=== PATIENT | male | born 1980 | race Caucasian/White ===

== ENCOUNTER 2021-02-11 10:24 | Emergency (ER) | payer SELFPAY ==
[2021-02-11 11:16] LABS: BILIRUBIN,URINE NEGATIVE (NEGATIVE); CLARITY,URINE CLEAR (CLEAR); GLUCOSE, URINE (UA) NEGATIVE (NEGATIVE); KETONES,URINE (UA) NEGATIVE (NEGATIVE); LEUKOCYTE ESTERASE, URINE NEGATIVE (NEGATIVE); NITRITE,URINE NEGATIVE (NEGATIVE); OCCULT BLOOD,URINE NEGATIVE (NEGATIVE); PROTEIN,URINE TRACE mg/dL (NEGATIVE); UROBILINOGEN,URINE 0.2 (NORMAL) E.U./dL (NORMAL)
[2021-02-11 11:27] LABS: BACTERIA,URINE Few /HPF (None Seen); RBC,URINE 0-5 /HPF (0-5); SQUAMOUS EPITHELIAL CELL,UR RARE Squamous (<= Few)
[2021-02-11 11:34] LABS: BASOPHILS % (AUTO) 0.1 %; EOSINOPHILS % (AUTO) 0.1 %; HCT - HEMATOCRIT 41.8 % (42.0-52.0); HGB - HEMOGLOBIN 14.6 g/dL (14.0-18.0); MEAN CORPUSCULAR HEMOGLOBIN 31.2 pg (27.0-31.0); MEAN CORPUSCULAR HGB CONC 34.9 g/dL (32.0-36.0); MEAN CORPUSCULAR VOLUME 89.3 fL (80.0-94.0); MEAN PLATELET VOLUME 9.9 fL (7.4-11.4); MONOCYTES # (AUTO) 0.7 10^3/uL (0.0-1.0); MONOCYTES % (AUTO) 9.4 %; NEUTROPHILS # (AUTO) 5.4 10^3/uL (1.5-6.6); PLT - PLATELET COUNT 212 10^3/uL (130-450); RED BLOOD COUNT 4.68 10^6/uL (4.70-6.10); RED CELL DISTRIBUTION WIDTH 11.9 % (12.0-15.0); WHITE BLOOD COUNT 7.1 x10^3/uL (4.8-10.8)
[2021-02-11 11:54] LABS: ALBUMIN 3.7 g/dL (3.2-5.5); ALBUMIN/GLOBULIN RATIO 1.1 (1.0-2.2); BILIRUBIN,TOTAL 1.9 mg/dL (0.2-1.0); CREATININE 1.8 mg/dL (0.6-1.2); POTASSIUM 2.7 mmol/L (3.5-5.0)
[2021-02-11] MEDS ORDERED: SODIUM CHLORIDE 0.9% 1,000 ML IV STA ×3 (11:54→14:31)
--- NOTE | 2021-02-11 11:56 | ED Physician Documentation ---
PD HPI NVD - Stated complaint Stated Complaint: NAUSEA/HEAD PX/DIZZY - Chief complaint Chief Complaint: Abd Pain - History obtained from History obtained from: Patient - History of Present Illness Timing - onset: How many days ago (4) Timing - duration: Days (4) Timing - details: Gradual onset, Still present Associated symptoms: Dizzy, Near syncope / syncope, Other (headache) Contributing factors: Other (recent heat wave and continued outdoor activity after symptoms developed.) Improved by: Vomiting Similar symptoms before: Has not had sx before Recently seen: Not recently seen - Additonal information Additional information: Previously well 40-year-old male has developed nausea a headache some vomiting and lightheaded and dizziness over the past 4 days. He states that during the heat wave he does think he got dehydrated and he does not think he has caught up. He has developed a lot of heartburn which is typical for him and he has taken a lot of Tums over the past several days. Review of Systems Constitutional: denies: Fever Ears: denies: Ear pain Nose: denies: Congestion Throat: denies: Sore throat Cardiac: reports: Chest pain / pressure (heart burn) Respiratory: denies: Dyspnea, Cough GI: reports: Nausea, Vomiting. denies: Abdominal Pain : denies: Dysuria, Frequency PD PAST MEDICAL HISTORY - Present Medications Home Medications: Ambulatory Orders Medication Instructions Recorded Confirmed No Known Home Medications 02/11/21 02/11/21 - Allergies Allergies/Adverse Reactions: Allergies Allergy/AdvReac Type Severity Reaction Status Date / Time No Known Drug Allergies Allergy Verified 02/11/21 10:31 - Social History Does the pt smoke?: No Smoking Status: Never smoker Does the pt drink ETOH?: Yes Does the pt have substance abuse?: Yes Substance Use and Type: Marijuana PD ED PE NORMAL - Vitals Vital signs reviewed: Yes (hypertensive ) - General General: Alert and oriented X 3, No acute distress, Well developed/nourished - HEENT HEENT: Atraumatic, PERRL, EOMI - Neck Neck: Supple, no meningeal sign, No bony TTP - Cardiac Cardiac: RRR, No murmur - Respiratory Respiratory: No respiratory distress, Clear bilaterally - Abdomen Abdomen: Normal bowel sounds, Soft, Non tender, Non distended, No organomegaly - Back Back: No CVA TTP, No spinal TTP - Derm Derm: Normal color, Warm and dry, No rash - Extremities Extremities: No deformity, No edema - Neuro Neuro: Alert and oriented X 3, 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, No motor deficit, No sensory deficit, Normal speech Eye Opening: Spontaneous Motor: Obeys Commands Verbal: Oriented GCS Score: 15 - Psych Psych: Normal mood, Normal affect Results - Vitals Vitals: Vital Signs - 24 hr 02/11/21 02/11/21 02/11/21 10:27 12:31 14:00 Temperature 36.6 C 36.8 C 36.6 C Heart Rate 92 71 76 Respiratory 16 14 14 Rate Blood Pressure 160/100 H 164/94 H 166/102 H O2 Saturation 97 98 99 Oxygen O2 Source Room air - Labs Labs: Laboratory Tests 02/11/21 02/11/21 02/11/21 10:43 10:43 11:19 WBC 7.1 RBC 4.68 L Hgb 14.6 Hct 41.8 L MCV 89.3 MCH 31.2 H MCHC 34.9 RDW 11.9 L Plt Count 212 MPV 9.9 Neut # (Auto) 5.4 Lymph # (Auto) 1.0 L [place] # (Auto) 0.7 Eos # (Auto) 0.0 Baso # (Auto) 0.0 Absolute Nucleated RBC 0.00 Nucleated RBC % 0.0 Sodium Potassium Chloride Carbon Dioxide Anion Gap BUN Creatinine Estimated GFR (MDRD) Glucose Calcium Total Bilirubin AST ALT Alkaline Phosphatase Total Protein Albumin Globulin Albumin/Globulin Ratio Lipase PTH Intact Urine Color YELLOW Cancelled Urine Clarity CLEAR Cancelled Urine pH 8.0 H Cancelled Ur Specific [place] 1.015 Cancelled Urine Protein TRACE Cancelled Urine Glucose (UA) NEGATIVE Cancelled Urine Ketones NEGATIVE Cancelled Urine Occult Blood NEGATIVE Cancelled Urine Nitrite NEGATIVE Cancelled Urine Bilirubin NEGATIVE Cancelled Urine Urobilinogen 0.2 (NORMAL) Cancelled Ur Leukocyte Esterase NEGATIVE Cancelled Urine RBC 0-5 Urine WBC 4-5 Ur Squamous Epith Cells RARE Squamous Urine Bacteria Few Ur Microscopic Review Cancelled Urine Culture Comments Cancelled 02/11/21 02/11/21 11:19 11:19 WBC RBC Hgb Hct MCV MCH MCHC RDW Plt Count MPV Neut # (Auto) Lymph # (Auto) [place] # (Auto) Eos # (Auto) Baso # (Auto) Absolute Nucleated RBC Nucleated RBC % Sodium 127 L Potassium 2.7 L Chloride 82 L Carbon Dioxide 33 H Anion Gap 12.0 BUN 21 H Creatinine 1.8 H Estimated GFR (MDRD) 42 L Glucose 110 H Calcium 15.1 H* Total Bilirubin 1.9 H AST 45 H ALT 41 Alkaline Phosphatase 54 Total Protein 7.0 Albumin 3.7 Globulin 3.3 Albumin/Globulin Ratio 1.1 Lipase 24 PTH Intact 8 L Urine Color Urine Clarity Urine pH Ur Specific [place] Urine Protein Urine Glucose (UA) Urine Ketones Urine Occult Blood Urine Nitrite Urine Bilirubin Urine Urobilinogen Ur Leukocyte Esterase Urine RBC Urine WBC Ur Squamous Epith Cells Urine Bacteria Ur Microscopic Review Urine Culture Comments Procedures - IVC sono (time) 1150 Bedside IVC sono: IVC measures (cm) (0.73), IVC collapsed c insp (cm) (complete), Dehydration (est 2-3 liter deficit) PD MEDICAL DECISION MAKING - ED course Complexity details: reviewed results, re-evaluated patient, considered differential, d/w patient ED course: 40-year-old male has developed nausea and vomiting has become dehydrated and he has been taking a lot of Tums. He is found to have an elevated calcium and has a normal or low parathyroid hormone. 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 He improved with use of intravenous saline and we have administered potassium as well. Departure - Departure Disposition: 01 Home, Self Care Clinical Impression: Dehydration, Milk alkali syndrome, Hypokalemia Gastroesophageal reflux disease Qualifiers: Esophagitis presence: esophagitis presence not specified Qualified Code(s): K21.9 - Gastro-esophageal reflux disease without esophagitis Vomiting Qualifiers: Vomiting type: unspecified Vomiting Intractability: non-intractable Nausea presence: with nausea Qualified Code(s): R11.2 - Nausea with vomiting, unspe cified Condition: Stable Instructions: ED Dehydration, ED Diet High Potassium, ED Diet Vomiting Diarrhea Follow-Up: [facility] [Provider Group] Comments: Discontinue the use of the Tums and substitute omeprazole.
[2021-02-11 11:57] LABS: CALCIUM 15.1 mg/dL (8.5-10.3)
[2021-02-11] MEDS ORDERED: POTASSIUM CHLORIDE 20 MEQ TABLET PO STA (12:30)
[2021-02-11] MEDS: POTASSIUM CHLOR 10 MEQ/100 ML 10 MEQ/100 ML BAG IV SCH ×4 (12:40→15:49)
[2021-02-11 16:48] VITALS: BP 171/102
== END 2021-02-11 17:02 | disposition home or self-care (01) ==
LOC: ED 10:24
DX: E86.0 Dehydration (principal); E83.52 Hypercalcemia; E87.6 Hypokalemia; K21.9 Gastro-esophageal reflux disease without esophagitis
CPT/HCPCS: 36415; 80053; 81001; 83690; 83970; 85025; 96365; 96366; 96367; 99284; A9270; 81003; 87086

== ENCOUNTER 2021-07-24 18:31 | Emergency (ER) | payer MEDICAID ==
[2021-07-24 19:04] LABS: BILIRUBIN,URINE NEGATIVE (NEGATIVE); GLUCOSE, URINE (UA) NEGATIVE (NEGATIVE); KETONES,URINE (UA) NEGATIVE (NEGATIVE); LEUKOCYTE ESTERASE, URINE NEGATIVE (NEGATIVE); NITRITE,URINE NEGATIVE (NEGATIVE); OCCULT BLOOD,URINE TRACE-INTA (NEGATIVE); PH,URINE 6.5 PH (5.0-7.5); PROTEIN,URINE NEGATIVE (NEGATIVE); UROBILINOGEN,URINE 0.2 (NORMAL) E.U./dL (NORMAL)
[2021-07-24 19:07] LABS: CLARITY,URINE CLEAR (CLEAR)
[2021-07-24] MEDS ORDERED: MAG HYDROX/AL HYDROX/SIMETH 30 ML UDC PO STA (19:24)
[2021-07-24] MEDS ORDERED: ACETAMINOPHEN 325 MG TABLET PO STA (19:24)
[2021-07-24] MEDS ORDERED: LIDOCAINE VISCOUS 2% 15 ML UDC MM STA (19:24)
--- NOTE | 2021-07-24 19:25 | ED Physician Documentation ---
PD HPI ABD PAIN - Stated complaint Stated Complaint: ABDOMINAL PX - Chief complaint Chief Complaint: Abd Pain - History obtained from History obtained from: Patient - Additional information Additional information: 41-year-old gentleman has been having issues with abdominal pain. He was originally seen by it for it by one of my partners in February right after the heat wave. 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 He was taking a lot of Tums at the time and has stopped that. Now for the last week he has had upper abdominal pain radiating to the flanks and subsequently down to the pelvis. It is not worse after eating. He has been nauseous with it. Review of Systems Ten Systems: 10 systems reviewed and negative Constitutional: denies: Fever, Chills, Weight Loss Ears: reports: Reviewed and negative Nose: reports: Reviewed and negative Throat: reports: Reviewed and negative Cardiac: reports: Reviewed and negative PD PAST MEDICAL HISTORY - Present Medications Home Medications: Ambulatory Orders Medication Instructions Recorded Confirmed Oxycodone HCl/Acetaminophen 1 - 2 each PO Q6H PRN #14 tablet 07/24/21 [Percocet 5-325 mg Tablet] - Allergies Allergies/Adverse Reactions: Allergies Allergy/AdvReac Type Severity Reaction Status Date / Time No Known Drug Allergies Allergy Verified 07/24/21 18:42 - Social History Does the pt smoke?: No Smoking Status: Never smoker Does the pt drink ETOH?: Yes Does the pt have substance abuse?: Yes PD ED PE NORMAL - Vitals Vital signs reviewed: Yes - General General: Alert and oriented X 3, No acute distress - HEENT HEENT: PERRL, EOMI - Neck Neck: Supple, no meningeal sign, No bony TTP - Cardiac Cardiac: RRR, No murmur - Respiratory Respiratory: No respiratory distress, Clear bilaterally - Abdomen Abdomen: Normal bowel sounds, Soft, Other (Mild epigastric tenderness with equivocal Willams sign and right upper quadrant tenderness. No surgical signs.) - Back Back: No CVA TTP, No spinal TTP - Derm Derm: Normal color, Warm and dry - Extremities Extremities: No edema, No calf tenderness / cord - Neuro Neuro: Alert and oriented X 3, Normal speech Results - Vitals Vitals: Vital Signs - 24 hr 07/24/21 07/24/21 07/24/21 18:40 19:47 21:00 Temperature 36.5 C 36.8 C Heart Rate 108 H 97 100 Respiratory 18 22 18 Rate Blood Pressure 204/133 H 174/102 H 174/98 H O2 Saturation 98 99 100 Oxygen O2 Source Room air - Labs Labs: Laboratory Tests 07/24/21 07/24/21 07/24/21 18:51 18:51 18:53 WBC 14.0 H RBC 4.85 Hgb 15.8 Hct 43.9 MCV 90.5 MCH 32.6 H MCHC 36.0 RDW 12.6 Plt Count 161 MPV 9.2 Neut # (Auto) 11.6 H Lymph # (Auto) 1.0 L [place] # (Auto) 1.2 H Eos # (Auto) 0.0 Baso # (Auto) 0.0 Absolute Nucleated RBC 0.00 Nucleated RBC % 0.0 Sodium 121 L Potassium 3.5 Chloride 86 L Carbon Dioxide 24 Anion Gap 11.0 BUN < 5 L Creatinine 0.7 Estimated GFR (MDRD) 126 Glucose 133 H Calcium 8.8 Total Bilirubin 1.5 H AST 49 H ALT 66 H Alkaline Phosphatase 79 Total Protein 6.2 L Albumin 3.4 Globulin 2.8 Albumin/Globulin Ratio 1.2 Lipase 128 H Urine Color YELLOW Urine Clarity CLEAR Urine pH 6.5 Ur Specific [place] 1.010 Urine Protein NEGATIVE Urine Glucose (UA) NEGATIVE Urine Ketones NEGATIVE Urine Occult Blood TRACE-INTA Urine Nitrite NEGATIVE Urine Bilirubin NEGATIVE Urine Urobilinogen 0.2 (NORMAL) Ur Leukocyte Esterase NEGATIVE Ur Microscopic Review NOT INDICATED Urine Culture Comments NOT INDICATED - Rads (name of study) CT Abd/pel Radiology: EMP read contemporaneously PD MEDICAL DECISION MAKING - ED course ED course: 41-year-old gentleman presents with epigastric pain radiating to the flanks. Fairly benign exam but some upper abdominal tenderness. He was using alcohol heavily but quit a few days ago. 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 CT showing mild pancreatitis and his lipase is very modestly elevated. He was offered admission especially note of the sodium level but he would like to go home with some pain medication. He already quit drinking a couple of days ago and understands the need to continue to abstain from alcohol. Discussed with him that he if he is discharged she will need to have repeat labs in a few days to reassess his sodium level to make sure it is improving. Departure - Departure Disposition: 01 Home, Self Care Clinical Impression: Hyponatremia Pancreatitis Qualifiers: Chronicity: acute Pancreatitis type: alcohol induced Acute pancreatitis complication: no infection or necrosis Qualified Code(s): K85.20 - Alcohol induced acute pancreatitis without necrosis or infection Condition: Good Record reviewed to determine appropriate education?: Yes Instructions: Pancreatitis Chronic Dc Prescriptions: Oxycodone HCl/Acetaminophen [Percocet 5-325 mg Tablet] 1 - 2 each PO Q6H PRN #14 tablet PRN Reason: pain Comments: Prescription was sent electronically to [facility] in [place]. As discussed, you were sent found days to have some alcoholic liver disease, mild pancreatitis and low sodium level. You need to continue to abstain from alcohol as that is likely the root cause of your problems and you should start your omeprazole again and take it daily. Also you should have repeat labs done in 2 to 3 days as we discussed and you can go your primary care of the walk-in clinic for that. Return for new or worsening symptoms. I am prescribing a short course of narcotic pain medication for you. These are p otentially dangerous and addictive medications that should be used carefully. These medications may constipate you. Take an [id number] stool softener (docusate) twice daily with plenty of water while taking these medications. If you go 24 hours without a bowel movement, take [id number] miralax, per package instructions. Do not drink or drive while taking these medications. If you received narcotic or sedating medications while in the emergency department, do not drive for 24 hours. Store this medication in a safe, secure place and out of reach of children. It is a violation of federal law to give or sell this medication to another person or to use in a manner other than prescribed. The ED will not refill narcotic prescriptions, including prescriptions lost or stolen. To dispose of unwanted medications: 1. [facility] at [address] in [place] has a medication drop box. They accept prescription medications (in pill form) Sunday through Sunday 9:00 a.m. to 5:00 p.m. 2. The [facility] [employer] accepts prescription medications (in pill form only) for disposal year round. Call for more information. 3. Contact the [facility] for the next [facility] sponsored prescription drug collection event. , [phone], or [phone]; Note that many narcotic pain relievers also contain Tylenol/acetaminophen. Please ensure that your total dose of acetaminophen from all sources does not exceed 3 g (3000 mg) per day.
[2021-07-24 19:28] LABS: BASOPHILS % (AUTO) 0.2 %; EOSINOPHILS % (AUTO) 0.1 %; HCT - HEMATOCRIT 43.9 % (42.0-52.0); HGB - HEMOGLOBIN 15.8 g/dL (14.0-18.0); LYMPHOCYTES % (AUTO) 7.4 %; MEAN CORPUSCULAR HEMOGLOBIN 32.6 pg (27.0-31.0); MEAN CORPUSCULAR VOLUME 90.5 fL (80.0-94.0); MONOCYTES # (AUTO) 1.2 10^3/uL (0.0-1.0); MONOCYTES % (AUTO) 8.9 %; NEUTROPHILS # (AUTO) 11.6 10^3/uL (1.5-6.6); NEUTROPHILS % (AUTO) 82.7 %; RED BLOOD COUNT 4.85 10^6/uL (4.70-6.10); RED CELL DISTRIBUTION WIDTH 12.6 % (12.0-15.0)
[2021-07-24 19:31] LABS: PLT - PLATELET COUNT 161 10^3/uL (130-450)
[2021-07-24 19:32] LABS: MEAN PLATELET VOLUME 9.2 fL (7.4-11.4)
[2021-07-24 19:35] LABS: ALBUMIN 3.4 g/dL (3.2-5.5); ALBUMIN/GLOBULIN RATIO 1.2 (1.0-2.2); ALKALINE PHOSPHATASE 79 IU/L (42-121); ALT ALANINE AMINOTRANSFERASE 66 IU/L (10-60); AST ASPARTATE AMINOTRANSFERASE 49 IU/L (10-42); BILIRUBIN,TOTAL 1.5 mg/dL (0.2-1.0); BUN - BLOOD UREA NITROGEN < 5 mg/dL (6-20); CALCIUM 8.8 mg/dL (8.5-10.3); CARBON DIOXIDE - CO2 24 mmol/L (21-32); CHLORIDE 86 mmol/L (101-111); CREATININE 0.7 mg/dL (0.6-1.2); GFR - MDRD 126 (>89); GLUCOSE 133 mg/dL (70-100); LIPASE 128 U/L (22-51); TOTAL PROTEIN 6.2 g/dL (6.7-8.2)
[2021-07-24 19:36] LABS: POTASSIUM 3.5 mmol/L (3.5-5.0); SODIUM 121 mmol/L (135-145)
[2021-07-24] MEDS ORDERED: IOPAMIDOL-300 100 ML VIAL ONE (20:14)
[2021-07-24] MEDS ORDERED: IOPAMIDOL-300 100 ML VIAL IVP ONE (20:42)
--- NOTE | 2021-07-24 21:17 | CT Report ---
PROCEDURE: Abdomen/Pelvis W INDICATIONS: IV only, upper abd pain CONTRAST: IV CONTRAST: Optiray 320 ml: 100 PO CONTRAST: *NO PO CONTRAST TECHNIQUE: After the administration of intravenous contrast, 5 mm thick sections acquired from the diaphragms to the symphysis. 5 mm thick coronal and sagittal reformats were acquired. For radiation dose reducti on, the following was used: automated exposure control, adjustment of mA and/or kV according to mendoza ent size. COMPARISON: None. FINDINGS: Hypoattenuation at the head of the pancreas with peripancreatic inflammatory changes. Findings most l ikely represent pancreatitis. Regional arteries demonstrate no evidence of pseudoaneurysm. Adjacent p ortal vein and SMV demonstrate normal opacification with no evidence of thrombosis. No peripancreatic fluid collection. Hepatomegaly with moderate to severe hepatic steatosis. The spleen, gallbladder, adrenal glands, and kidneys are normal. No acute enteric process demonstrated. No free pelvic fluid. Urinary bladder and prostate are normal. No threshold enlarged intra-abdominal, retroperitoneal, pelvic, or inguinal lymph node. Included portions of the lung bases are clear. Osseous structures intact without acute or suspicious osseous lesion. IMPRESSION: Hypoattenuation of the pancreas with peripancreatic fat stranding. Findings suggest pancreatitis. Cor relate with lipase levels. Moderately severe hepatic steatosis with hepatomegaly. Reviewed by: Jonah Ruiz MD on 07/24/2021 9:15 PM PST Approved by: Jonah Ruiz MD on 07/24/2021 9:15 PM PST Station ID: [id number]
[2021-07-24 21:18] VITALS: BP 174/98
[2021-07-24] MEDS ORDERED: oxyCODONE/ACET 5/325 Prepack 4 PO STA (21:47)
== END 2021-07-24 21:59 | disposition home or self-care (01) ==
LOC: ED 18:31
DX: E87.1 Hypo-osmolality and hyponatremia (principal); K85.20 Alcohol induced acute pancreatitis without necrosis or infection
CPT/HCPCS: 36415; 74177; 80053; 81003; 83690; 85025; 99283; 99284; A9270; Q9967; 81001; 87086

== ENCOUNTER 2022-10-02 08:00 | Outpatient (CLI) | payer MEDICAID ==
--- NOTE | 2022-10-02 17:51 | XRAY Report ---
PROCEDURE: Chest 2 View X-Ray INDICATIONS: CHEST CONGESTION TECHNIQUE: 2 views of the chest were acquired. COMPARISON: None. FINDINGS: Surgical changes and devices: None. Lungs and pleura: No pleural effusions or pneumothorax. Lungs are clear. Mediastinum: Mediastinal contours are normal. Heart size is normal. Bones and chest wall: No suspicious bony abnormalities. Soft tissues appear unremarkable. IMPRESSION: Normal chest plain films Reviewed by: Louis Davison MD on 10/02/2022 4:50 PM [facility] Approved by: Louis Davison MD on 10/02/2022 4:50 PM [facility] Station ID: [id number]
== END 2022-10-02 23:59 | disposition home or self-care (01) ==
LOC: DI.S 08:00
PROVIDERS: ATTEND Physician Assistant Medical
DX: R09.89 Other specified symptoms and signs involving the circulatory and respiratory systems (principal)

== ENCOUNTER 2023-03-15 12:00 | Outpatient (CLI) | payer MEDICAID | END 2023-03-15 23:59 | disposition critical access hospital (66) | LOC: EMS 12:00 | DX: R42 Dizziness and giddiness (principal); R11.0 Nausea; R53.83 Other fatigue; R00.0 Tachycardia, unspecified; R07.89 Other chest pain; R20.0 Anesthesia of skin | CPT/HCPCS: A0425; A0427; A0999 ==

== ENCOUNTER 2023-03-15 12:36 | Emergency (ER) | payer MEDICAID ==
--- NOTE | 2023-03-15 12:59 | ED Physician Documentation ---
PD HPI CHEST PAIN - Stated complaint Stated Complaint: N/V/ PALP - Chief complaint Chief Complaint: Cardiac - History obtained from History obtained from: Patient - History of Present Illness Timing - onset: How many hours ago (bout 2 1/2 hours ago), Today Timing - onset during: Light activity Timing - duration: Days Timing - details: Abrupt onset, Still present Quality: Tightness. No: Sharp, Stabbing Location: Substernal, Left chest Radiation: No: Jaw, Neck, Back Improved by: Other (he tried cool shower and did not really help.). No: Rest Worsened by: No: Exertion, Inspiration Associated symptoms: Nausea, Vomiting, Palpitations (felt heart rate going fast.), Other (feeling of anxiety) Similar symptoms before: Has not had sx before Recently seen: Not recently seen Review of Systems Constitutional: denies: Fever, Chills Nose: denies: Rhinorrhea / runny nose, Congestion Throat: denies: Sore throat Respiratory: denies: Cough GI: reports: Nausea, Vomiting (repetitively the past 2 hours.). denies: Abdominal Pain, Hematemesis Musculoskeletal: denies: Neck pain, Back pain Neurologic: reports: Generalized weakness. denies: Focal weakness, Near syncope, Altered mental status, Headache PD PAST MEDICAL HISTORY - Past Medical History Past Medical History: Yes Cardiovascular: None Respiratory: None Endocrine/Autoimmune: None GI: None Psych: Anxiety, Panic attacks - Past Surgical History Past Surgical History: No - Present Medications Home Medications: Ambulatory Orders Medication Instructions Recorded Confirmed Oxycodone HCl/Acetaminophen 1 - 2 each PO Q6H PRN #14 tablet 07/24/21 [Percocet 5-325 mg Tablet] LORazepam [Ativan] 1 mg PO BID PRN #12 tablet 03/15/23 Ondansetron Odt [Zofran] 4 mg TL Q6H PRN #10 tablet 03/15/23 - Allergies Allergies/Adverse Reactions: Allergies Allergy/AdvReac Type Severity Reaction Status Date / Time No Known Drug Allergies Allergy Verified 03/15/23 12:54 - Living Situation Living Arrangement: reports: At home - Social History Does the pt smoke?: No Smoking Status: Former smoker Does the pt drink ETOH?: Yes ETOH Use: Other (he states just 1-2 drinks a few times per week, though did drink several drinks couple night agao. ) Does the pt have substance abuse?: Yes Substance Use and Type: Marijuana PD ED PE NORMAL - Vitals Vital signs reviewed: Yes (tachycardic) - General General: Alert and oriented X 3, Well developed/nourished, Other (shaky and appears anxious. Emesis bag in hand. ) - HEENT HEENT: Pharynx benign - Neck Neck: Supple, no meningeal sign, No adenopathy - Cardiac Cardiac: No murmur. No: RRR (regular but tachycardic) - Respiratory Respiratory: No respiratory distress, Clear bilaterally - Abdomen Abdomen: Soft, Non tender - Derm Derm: Normal color, Warm and dry - Extremities Extremities: No edema, No calf tenderness / cord - Neuro Neuro: Alert and oriented X 3, No motor deficit, Normal speech, Other (shaky hands and extremities. ) Results - Vitals Vitals: Vital Signs - 24 hr 03/15/23 03/15/23 12:45 15:18 Temperature 36.2 C L Heart Rate 114 H 95 Respiratory 18 16 Rate Blood Pressure 143/97 H 156/91 H O2 Saturation 99 98 Oxygen O2 Source Room air - Labs Labs: Laboratory Tests 03/15/23 03/15/23 13:02 13:02 WBC 9.9 RBC 5.01 Hgb 16.0 Hct 45.7 MCV 91.2 MCH 31.9 H MCHC 35.0 RDW 12.7 Plt Count 221 MPV 9.5 Neut # (Auto) 8.5 H Lymph # (Auto) 0.4 L [place] # (Auto) 0.9 Eos # (Auto) 0.2 Baso # (Auto) 0.1 Absolute Nucleated RBC 0.00 Nucleated RBC % 0.0 Sodium 135 Potassium 3.7 Chloride 98 L Carbon Dioxide 20 L Anion Gap 17.0 H BUN 16 Creatinine 1.2 Estimated GFR (MDRD) 67 L Glucose 116 H Calcium 8.7 Total Bilirubin 0.9 AST 28 ALT 22 Alkaline Phosphatase 66 Troponin I High Sens 6.2 Total Protein 7.2 Albumin 4.3 Globulin 2.9 Albumin/Globulin Ratio 1.5 Lipase 70 PD Medical Decision Making - ED course Complexity details: re-evaluated patient (patiuent was tachycardic in the ED but did have heart rate improve with fluids and medications to includ nasuea and anxiety meds. Still womewhat anxious and shaky. He again denies regular or excess alcohol use, as he would appear clinically like GORGE. He did ask for Rx for anxiety, like lorazepam. ), considered differential, d/w patient Reviewed Lab Results: CBC and chemistry panel are good without any notable abnormalities. His tropoin is well in normal range at6.2. ECG and chest xray were normal. NO appearance of CHF, FL, pneumonia, acute lung process. He did describe trying some cool showers at home with the vomiting and anxious. He has cannibis regularly, but no prior hyperemesis episodes per se. I would still keep cannibis hyperemesis as a possibility. If recurring episodes, consider this and also venture further again with questioning on alcohol/substance abuse. Departure - Departure Disposition: 01 Home, Self Care Clinical Impression: Tachycardia Nausea and vomiting Qualifiers: Vomiting type: unspecified Qualified Code(s): R11.2 - Nausea with vomiting, unspecified Condition: Stable Record reviewed to determine appropriate education?: Yes Prescriptions: LORazepam [Ativan] 1 mg PO BID PRN #12 tablet PRN Reason: Anxiety Ondansetron Odt [Zofran] 4 mg TL Q6H PRN #10 tablet PRN Reason: Nausea / Vomiting Comments: Unclear the cause of your symptoms. Consider possible irritation of the stomach/gastritis related to last night's alcohol use. There could be some element of just anxiety related to that. There is no signs of heart cause for the pain based on your EKG and a blood test called troponin. No signs of pancreatic inflammation based on blood test. Your heart rate is still little bit fast but you are feeling better and you feel comfortable going home. I would anticipate you feeling better through the day still. Prescriptions of ondansetron if needed for consistent or persistent nausea. Lorazepam as needed for anxiety. Recheck if not improved well over the next day and return if worsening again. Hydrate well through the day. Forms: PCP List Discharge Date/Time: 03/15/23 15:19
--- NOTE | 2023-03-15 13:08 | XRAY Report ---
PROCEDURE: Chest 1 View X-Ray INDICATIONS: Chest pain TECHNIQUE: One view of the chest was acquired. COMPARISON: Chest x-ray 10/02/2022 FINDINGS: Surgical changes and devices: None. Lungs and pleura: No pleural effusions or pneumothorax. Lungs are clear. Mediastinum: Mediastinal contours appear normal. Heart size is normal. Bones and chest wall: No suspicious bony lesions. Overlying soft tissues appear unremarkable. IMPRESSION: No acute cardiopulmonary process. Reviewed by: Abbey Solis MD on 03/15/2023 1:07 PM PDT Approved by: Abbey Solis MD on 03/15/2023 1:07 PM PDT Station ID: [id number]
[2023-03-15 13:11] LABS: BASOPHILS # (AUTO) 0.1 10^3/uL (0.0-0.1); BASOPHILS % (AUTO) 0.9 %; EOSINOPHILS # (AUTO) 0.2 10^3/uL (0.0-0.7); EOSINOPHILS % (AUTO) 1.6 %; HCT - HEMATOCRIT 45.7 % (42.0-52.0); LYMPHOCYTES # (AUTO) 0.4 10^3/uL (1.5-3.5); LYMPHOCYTES % (AUTO) 3.5 %; MEAN CORPUSCULAR HEMOGLOBIN 31.9 pg (27.0-31.0); MEAN CORPUSCULAR VOLUME 91.2 fL (80.0-94.0); MEAN PLATELET VOLUME 9.5 fL (7.4-11.4); MONOCYTES # (AUTO) 0.9 10^3/uL (0.0-1.0); MONOCYTES % (AUTO) 8.8 %; NEUTROPHILS # (AUTO) 8.5 10^3/uL (1.5-6.6); NEUTROPHILS % (AUTO) 85.1 %; PLT - PLATELET COUNT 221 10^3/uL (130-450); RED BLOOD COUNT 5.01 10^6/uL (4.70-6.10); RED CELL DISTRIBUTION WIDTH 12.7 % (12.0-15.0); WHITE BLOOD COUNT 9.9 x10^3/uL (4.8-10.8)
[2023-03-15 13:28] LABS: ALBUMIN 4.3 g/dL (3.2-5.5)
[2023-03-15] MEDS ORDERED: SODIUM CHLORIDE 0.9% 1,000 ML IV STA (13:40)
[2023-03-15] MEDS ORDERED: DROPERIDOL 5 MG/2 ML VIAL IVP STA (13:40)
[2023-03-15] MEDS ORDERED: LORazepam 2 MG/ML VIAL IVP STA (13:40)
[2023-03-15 13:42] LABS: ALBUMIN/GLOBULIN RATIO 1.5 (1.0-2.2); BILIRUBIN,TOTAL 0.9 mg/dL (0.2-1.0); CALCIUM 8.7 mg/dL (8.5-10.3); CREATININE 1.2 mg/dL (0.6-1.3); POTASSIUM 3.7 mmol/L (3.5-4.5); TOTAL PROTEIN 7.2 g/dL (6.4-8.9)
[2023-03-15 13:43] LABS: TROPONIN I HIGH SENSITIVITY 6.2 ng/L (2.3-19.7)
[2023-03-15 15:21] VITALS: BP 156/91
== END 2023-03-15 15:19 | disposition home or self-care (01) ==
LOC: EDUNIT# → ED 12:36
DX: R00.0 Tachycardia, unspecified (principal); R11.2 Nausea with vomiting, unspecified; Z87.891 Personal history of nicotine dependence
CPT/HCPCS: 36415; 71045; 80053; 83690; 84484; 85025; 93005; 96374; 99284; J2060

== ENCOUNTER 2024-02-08 07:00 | Outpatient (CLI) | payer MEDICAID | END 2024-02-08 23:59 | disposition home or self-care (01) | LOC: LAB.S 07:00 | PROVIDERS: ATTEND Physician Assistant Medical | DX: J02.9 Acute pharyngitis, unspecified (principal) | CPT/HCPCS: 87070 ==